=== PATIENT | female | born 1960 | race Caucasian/White ===

== ENCOUNTER 2020-08-27 18:50 | Emergency (ER) | payer OTHER ==
[~2020-08-27] VITALS: Ht 172.7 cm; Wt 69.4 kg
[2020-08-27] MEDS ORDERED: CLOMIPRAMINE HC50 M1 PO (18:54)
[2020-08-27] MEDS ORDERED: TRAZODONE HCL50 MG PO (18:54)
[2020-08-27] MEDS ORDERED: LEVOTHYROXINE75 MCG PO (18:54)
[2020-08-27] MEDS ORDERED: LORAZEPAM 1 MG T1 MG PO (18:54)
[2020-08-27] MEDS ORDERED: ARIPIPRAZOLE30 MG PO (18:54)
[2020-08-27] MEDS ORDERED: ABILIFY 5 MG TAB5 MG PO (18:55)
[2020-08-27 19:34] LABS: ABSOLUTE NEUTROPHILS 3.9 thou/uL (1.4-8.2); BASOPHILS 0.9 % (0.0-2.0); EOSINOPHILS 0.4 % (0.0-3.0); HEMATOCRIT 36.3 % (37.0-47.0); HEMOGLOBIN 12.1 gm/dL (12.0-15.0); LYMPHOCYTES 27.4 % (24.0-44.0); MCH 30.3 pg (26.0-34.0); MCHC 33.4 g/dL (28.0-37.0); MCV 90.7 fL (80.0-100.0); MONOCYTES 8.8 % (1.0-8.0); PLATELET COUNT 350 thou/uL (150-400); POLYS 62.5 % (36.0-66.0); RDW 13.1 % (10.5-14.5); WBC 6.3 thou/uL (4.0-11.0)
[2020-08-27 19:39] LABS: ANION GAP 9 mmol/L (7-16); BUN 19 mg/dL (7-18); CHLORIDE 100 mmol/L (98-107); CO2 29 mmol/L (21-32); CREATININE 1.4 mg/dL (0.6-1.0); GLUCOSE 107 mg/dL (74-106); POTASSIUM 3.7 mmol/L (3.5-5.1); SODIUM 138 mmol/L (136-145)
[2020-08-27 19:48] LABS: ALBUMIN 3.7 g/dL (3.4-5.0); DIRECT BILIRUBIN < 0.1 mg/dL (<0.1-0.2); SGOT 16 U/L (15-37); SGPT 27 U/L (14-59); TOTAL BILIRUBIN 0.3 mg/dL (0.2-1.0); TOTAL PROTEIN 7.1 g/dL (6.4-8.2); TROPONIN-I <0.06 ng/mL (<0.06)
[2020-08-27 20:27] VITALS: BP 144/87
--- NOTE | 2020-08-29 07:50 | EKG ---
[address] [place] [address] ELECTROCARDIOGRAM REPORT Name: MACHO HAQ KEO Room #: DEP [id number] Admission: 08/27/20 Attend Phys: Discharge: 08/27/20 Date of : 56 Report #: [id number] [facility] Test Date: 2020-08-27 Test Time: 18:53:55 Pat Name: MACHO HAQ Department: Room: Gender: F Domestic Technician: UNKNOWN : 1960 Requested By: Grecia Marshall Order Number: [id number] MD: Lalo Mendez Measurements Intervals [place] Rate: 98 P: 95 MT: 121 QRS: 71 QRSD: 106 T: 51 QT: 346 QTc: 442 Interpretive Statements Sinus rhythm Compared to ECG 04/26/2008 19:05:09 No significant changes Electronically Signed On 08-29-2020 7:50:29 CDT by Lalo Mendez [email or web address] <ELECTRONICALLY SIGNED> By: Lalo Mendez MD, [facility] 08/29/20 0750 1853 1853 Lalo Mendez MD, FACC /EPI
== END 2020-08-27 20:27 | disposition home or self-care (01) ==
LOC: ER 18:50
PROVIDERS: Emergency Medicine
DX: R07.89 Other chest pain (principal); K21.9 Gastro-esophageal reflux disease without esophagitis; I10 Essential (primary) hypertension; Z90.710 Acquired absence of both cervix and uterus; Z79.899 Other long term (current) drug therapy

== ENCOUNTER 2021-05-07 21:52 | Emergency (ER) | payer OTHER ==
[~2021-05-07] VITALS: Ht 172.7 cm; Wt 68.0 kg
[~2021-05-07 21:52] MED LIST: ABILIFY 5 MG TAB5 MG PO; ARIPIPRAZOLE30 MG PO; CLOMIPRAMINE HC50 M1 PO; LEVOTHYROXINE75 MCG PO; LORAZEPAM 1 MG T1 MG PO; TRAZODONE HCL50 MG PO
[2021-05-07] MEDS ORDERED: AUGMENTIN 875-1 EACH PO (22:15)
[2021-05-07 22:34] VITALS: BP 136/75
== END 2021-05-07 22:35 | disposition home or self-care (01) ==
LOC: ER 21:52
DX: S61.532A Puncture wound without foreign body of left wrist, initial encounter (principal); K21.9 Gastro-esophageal reflux disease without esophagitis; I10 Essential (primary) hypertension; Z79.899 Other long term (current) drug therapy; W55.01XA Bitten by cat, initial encounter; Y93.89 Activity, other specified; Y92.89 Other specified places as the place of occurrence of the external cause; Y99.9 Unspecified external cause status